=== PATIENT | female | born 1940 | race Caucasian/White ===

== ENCOUNTER → 2020-06-01 | Outpatient (CLI) | payer OTHER ==
[~2020-06-01] MED LIST: CEFUROXIME500 MG PO; CHRONULAC20 GM/30 M PO; COLACE 100MG C100 MG PO; ECOTRIN81 MG PO; FLAGYL500 MG PO; GLYCERIN1 EAC1 PR; NEURONTIN 100100 MG PO; NORCO 5-325 TA1 EACH PO; PREDNISONE20 MG PO; ZOFRAN4 MG PO
== END ==
LOC: CT 10:30
DX: R09.89 Other specified symptoms and signs involving the circulatory and respiratory systems (principal); J84.10 Pulmonary fibrosis, unspecified; R91.8 Other nonspecific abnormal finding of lung field
CPT/HCPCS: 71250

== ENCOUNTER 2020-06-19 16:03 | Emergency (ER) | payer OTHER ==
[~2020-06-19 16:03] MED LIST changes: -CHRONULAC20 GM/30 M PO; -COLACE 100MG C100 MG PO; -GLYCERIN1 EAC1 PR
[2020-06-19 17:25] LABS: HEMOGLOBIN 11.5 gm/dl (12.3-15.3); RED BLOOD COUNT 3.85 M/UL (4.00-5.10); WHITE BLOOD COUNT 7.8 K/UL (4.5-11.0)
[2020-06-19 17:49] LABS: BUN/CREATININE RATIO 21 (0-10)
[2020-06-19] MEDS ORDERED: GLYCERIN1 EAC1 PR (20:44)
[2020-06-19] MEDS ORDERED: COLACE 100MG C100 MG PO (20:44)
[2020-06-19] MEDS ORDERED: CHRONULAC20 GM/30 M PO (20:44)
== END 2020-06-19 22:10 | disposition home or self-care (01) ==
LOC: ER1 16:03
PROVIDERS: Physician Assistant
DX: K59.00 Constipation, unspecified (principal); Z85.07 Personal history of malignant neoplasm of pancreas; F17.210 Nicotine dependence, cigarettes, uncomplicated
CPT/HCPCS: 71045; 80053; 82550; 82553; 83605; 83690; 83874; 84484; 85025; 87040; 93005; 99284; Q9967